=== PATIENT | male | born 1970 | race Caucasian/White ===

== ENCOUNTER 2024-05-01 11:17 | Observation (INO) ==
--- NOTE | 2024-04-08 09:16 | PAT Medication Instructions ---
Medication Instructions Date of Service April 08, 2024 Home Medications acetaminophen 500 mg tablet 1,000 mg PO BID aspirin 81 mg capsule 81 mg PO QAM cetirizine 10 mg tablet (Zyrtec) 10 mg PO QAM cholecalciferol (vitamin D3) 10 mcg (400 unit) tablet (Vitamin D3) 10 mcg PO QAM clonazepam 1 mg tablet (Klonopin) 1 mg PO QAM lisinopril 20 mg tablet 20 mg PO QAM magnesium 250 mg tablet 250 mg PO QAM naproxen 500 mg tablet 500 mg PO BID rosuvastatin 10 mg tablet 10 mg PO HS venlafaxine 150 mg capsule,extended release 24 hr (Effexor XR) 150 mg PO QAM ASK your surgeon for instructions naproxen 500 mg tablet 500 mg PO BID ASK your prescriber and surgeon aspirin 81 mg capsule 81 mg PO QAM DO NOT take the morning of surgery cetirizine 10 mg tablet (Zyrtec) 10 mg PO QAM cholecalciferol (vitamin D3) 10 mcg (400 unit) tablet (Vitamin D3) 10 mcg PO QAM lisinopril 20 mg tablet 20 mg PO QAM magnesium 250 mg tablet 250 mg PO QAM Take morning of surgery With a small sip of water, OTHERWISE NOTHING TO EAT OR DRINK AFTER MIDNIGHT: acetaminophen 500 mg tablet 1,000 mg PO BID clonazepam 1 mg tablet (Klonopin) 1 mg PO QAM venlafaxine 150 mg capsule,extended release 24 hr (Effexor XR) 150 mg PO QAM Take evening before surgery acetaminophen 500 mg tablet 1,000 mg PO BID rosuvastatin 10 mg tablet 10 mg PO HS Other Notes If you have any questions please call us at [phone] or [phone] or [phone] or [phone]
--- NOTE | 2024-04-09 12:06 | Anesthesiology Consultation ---
Date of Service April 09, 2024 Assessment & Plan (1) Encounter for pre-operative examination: Chart Review Chart Review: Acceptable Risk for Surgery (pending surgeon ordered PCP clearance ) and Patient seen in Pre Admission Testing - Awaiting PCP clearance 04/16/24 (MIKAL Alvarez PA-C) Per PAT appt on 04/09/24, no recent illness/disease exposures, illness related symptoms, or recent illness/disease positive tests. Will leave to surgeon's discretion if preop Covid testing needed Teaching & Discussion Pre-Anesthesia Teaching/Discussion Notes: Instructed NPO after midnight before surgery,except medications with 15 cc of water. Medication instructions provided according to the PAT guidelines. History Surgery Operation Date: 05/01/24 07:45 Proposed Procedures p L3-L4 Decompression with Extension Fusion to L3, Spinal Cord Monitoring - Moisés Bloom DO Height/Weight Height: 6 ft Weight: 108.5 kg Allergies Allergy/AdvReac Type Severity Reaction Status Date / Time No Known Allergies Allergy Verified 04/07/24 16:02 Medications Home Medications Medication Instructions Recorded Confirmed Last Taken acetaminophen 500 mg tablet 1,000 mg PO BID 04/07/24 04/07/24 Unknown aspirin 81 mg capsule 81 mg PO QAM 04/07/24 04/07/24 Unknown cetirizine 10 mg tablet (Zyrtec) 10 mg PO QAM 04/07/24 04/07/24 Unknown cholecalciferol (vitamin D3) 10 10 mcg PO QAM 04/07/24 04/07/24 Unknown mcg (400 unit) tablet (Vitamin D3) clonazepam 1 mg tablet (Klonopin) 1 mg PO QAM 04/07/24 04/07/24 Unknown lisinopril 20 mg tablet 20 mg PO QAM 04/07/24 04/07/24 Unknown magnesium 250 mg tablet 250 mg PO QAM 04/07/24 04/07/24 Unknown naproxen 500 mg tablet 500 mg PO BID 04/07/24 04/07/24 Unknown rosuvastatin 10 mg tablet 10 mg PO HS 04/07/24 04/07/24 Unknown venlafaxine 150 mg 150 mg PO QAM 04/07/24 04/07/24 Unknown capsule,extended release 24 hr (Effexor XR) Past Medical History Medical History Anxiety with depression Chronic back pain Hyperlipidemia Hypertension Scoliosis Venous insufficiency of both lower extremities edema stable and at baseline for patient Exercise / Class Metabolic Activity II 4-5 Yardwork/Stairs/Walk up hill (one flight of stairs - no chest pain or SOB ) Past Family History Family History Other No family history of adverse response to anesthesia Past Surgical History Surgical History History of lumbar spinal fusion 07/2014 @ [facility] History of tonsillectomy History of tooth extraction Past Anesthesia History No Hx of Anesthesia Complications and No Family Hx of Anesthesia Complications History of PONV No Hx of PONV and No Hx of Motion Sickness Social History Smoking Status: Former smoker Do You Dip or Chew Tobacco: No Smoking End Date: quit 2020 Hx Alcohol Use: Yes alcohol intake frequency: holidays/special occasions only Hx Substance Use: No substance use type: does not use Review of Systems - Hx of snoring- rare episodes of apnea- no hx of sleep study Patient denies chest pain, shortness of breath, dyspnea on exertion, reflux, cough, wheezing, palpitations. No hx of seizures, stroke, AL. No hx of blood clots or blood transfusions Physical Exam Vital Signs VITALS BP 110/76 P 59 TEMP 97.9 SP02 94% RESP 16 Constitutional no acute distress ENMT Mouth: no TMJ clicking Thyromental Distance: > or= 3.5 Finger Breadths (3.5) Mallampati Class: II Missing molars Neck neck extension not limited Respiratory normal respiratory effort; no respiratory distress Auscultation: lungs clear to auscultation bilaterally; no wheezes Cardiovascular Rate/Rhythm: regular rate and regular rhythm Heart Sounds: no murmur Vessels: no carotid bruit Musculoskeletal Spine: no pain with cervical ROM Extremities: extremities normal to inspection Psychiatric Orientation: alert Lab Results Anesthesia Preop Results Results Anesthesia Widget: WBC 5.43 K/ul (4.8-10.8) 04/09/24 Hgb 14.6 g/dl (14.0-18.0) 04/09/24 Hct 42.4 % (42.0-52.0) 04/09/24 Plt 197 K/uL (130-400) 04/09/24 Na 140 mmol/L (136-145) 04/09/24 K 4.5 mmol/L (3.5-5.1) 04/09/24 Cl 103 mmol/L (98-107) 04/09/24 CO2 31 mmol/L (21-32) 04/09/24 BUN 21 mg/dl (6-23) 04/09/24 Creat 1.01 mg/dl (0.6-1.4) 04/09/24 Glucose Level 93 mg/dl (70-99(Fasting)) 04/09/24 PT 11.8 Seconds (9.0-12.0) 04/09/24 PTT 33 Seconds (21-31) H 04/09/24 INR 1.1 (0.9-1.1) 04/09/24 Urine Color Yellow 04/09/24 Urine Appearance Clear (Clear) 04/09/24 Urine pH 8.5 (4.5-7.5) H 04/09/24 Urine Specific [place] 1.017 (1.000-1.030) 04/09/24 Urine Protein Negative (Negative) 04/09/24 Urine Glucose (UA) Negative (Negative) 04/09/24 Urine Ketones Negative (Negative) 04/09/24 Urine Blood Negative (Negative) 04/09/24 Urine Nitrite Negative (Negative) 04/09/24 Urine Bilirubin Negative (Negative) 04/09/24 Urine Urobilinogen Negative (Negative) 04/09/24 Urine Leukocyte Esterase Negative (Negative) 04/09/24 Blood Type A Positive 04/09/24 Antibody Screen NEGATIVE 04/09/24 Testing Electrocardiogram Date: 04/09/24 Findings: + SB @ (58bpm) Left anterior fascicular block Chest X-Ray Date: 04/09/24 Findings: + NAD
[2024-05-01] MEDS ORDERED: PROPOFOL IV EMULSION 10 MG/ML 20 ML VIAL IV ONE ×2 (11:44→11:47)
[2024-05-01] MEDS ORDERED: LIDOCAINE 2% 2 ML VIAL/AMP(20MG/ML) INFIL ONE ×3 (11:44→11:47)
[2024-05-01] MEDS ORDERED: ROCURONIUM BROMIDE 10 MG/ML 5 ML VIAL IV ONE ×2 (11:44→11:47)
[2024-05-01] MEDS ORDERED: LABETALOL HCL IV 5 MG/ML 20ML IV PRN (11:50)
[2024-05-01] MEDS ORDERED: ePHEDrine sulfate 50 MG/ML AMP IV PRN (11:50)
[2024-05-01] MEDS ORDERED: fentaNYL citrate PF 100 MCG/2 ML VIAL IV PRN (11:50)
[2024-05-01] MEDS ORDERED: PROMETHAZINE HCL 6.25 MG in SODIUM CHLORIDE 0.9% 50 ML IV PRN (11:50)
[2024-05-01] MEDS ORDERED: NALOXONE HCL 0.4 MG/1 ML VIAL/CARP IV PRN ×2 (11:50→17:39)
[2024-05-01] MEDS ORDERED: HYDROmorphone INJ 1 MG/ML SYRINGE IV PRN ×2 (11:50→17:39)
[2024-05-01] MEDS ORDERED: ONDANSETRON INJ 2 MG/ML 2 ML VIAL IV PRN ×2 (11:50→17:39)
[2024-05-01] MEDS ORDERED: FLUMAZENIL 0.1 MG/1 ML 10 ML VIAL IV PRN (11:50)
[2024-05-01] MEDS ORDERED: ATROPINE SULFATE 0.1 MG/ML 10ML SYR IV PRN (11:50)
[2024-05-01] MEDS: GABAPENTIN 600 MG DOSE PO SCH (12:16)
[2024-05-01] MEDS: CeleBREX 200 MG CAP PO SCH (12:16)
[2024-05-01] MEDS: LR 60ML/HR IV SCH (12:16)
[2024-05-01] MEDS: ACETAMINOPHEN 500 MG TAB PO SCH (12:16)
[2024-05-01] MEDS: LR 15ML/HR IV SCH (12:17)
--- NOTE | 2024-05-01 13:18 | History & Physical Bridge Note ---
Date of Service May 01, 2024 History & Physical Bridge Note I have examined the patient, reviewed the History & Physical and in the interval since the performance of the History & Physical I have noted the following changes of clinical significance: no changes noted
--- NOTE | 2024-05-01 13:20 | History & Physical Report ---
Date of Service May 01, 2024 Assessment & Plan (1) Spondylolisthesis, lumbar region: Plan: L3-L4 decompression with extension of fusion to L3 History of Present Illness Primary Care Provider: Eufemia Wise PA-C Back and leg pain Allergies Allergy/AdvReac Type Severity Reaction Status Date / Time No Known Allergies Allergy Verified 05/01/24 11:56 Home Medications Medication Instructions Recorded Confirmed Type acetaminophen 500 mg tablet 1,000 mg PO BID 04/07/24 05/01/24 History aspirin 81 mg capsule 81 mg PO QAM 04/07/24 05/01/24 History cetirizine 10 mg tablet (Zyrtec) 10 mg PO QAM 04/07/24 05/01/24 History cholecalciferol (vitamin D3) 10 10 mcg PO QAM 04/07/24 05/01/24 History mcg (400 unit) tablet (Vitamin D3) clonazepam 1 mg tablet (Klonopin) 1 mg PO QAM 04/07/24 05/01/24 History lisinopril 20 mg tablet 20 mg PO QAM 04/07/24 05/01/24 History magnesium 250 mg tablet 250 mg PO QAM 04/07/24 05/01/24 History naproxen 500 mg tablet 500 mg PO BID 04/07/24 05/01/24 History rosuvastatin 10 mg tablet 10 mg PO HS 04/07/24 05/01/24 History venlafaxine 150 mg 150 mg PO QAM 04/07/24 05/01/24 History capsule,extended release 24 hr (Effexor XR) Past Med/Surg History Problem List (Updated 05/01/24 @ 13:19 by Moisés Bloom DO) Spondylolisthesis, lumbar region Encounter for pre-operative examination Lumbar stenosis with neurogenic claudication (Acute) Medical History Anxiety with depression Chronic back pain Hyperlipidemia Hypertension Scoliosis Venous insufficiency of both lower extremities edema stable and at baseline for patient Surgical History History of lumbar spinal fusion 07/2014 @ [facility] History of tonsillectomy History of tooth extraction Family History Other No family history of adverse response to anesthesia Social History Smoking Status: Former smoker Tobacco Type: Cigarettes Smoking End Date: quit 2020; Second Hand Exposure: No; Do You Dip or Chew Tobacco: No; Tobacco Cessation Education Requested by Patient: No Hx Alcohol Use: Yes Hx Substance Use: No Preferred Language: Taiwanese Communication Ability: Effective Woods Warden Required: No Beliefs That Will Affect Care: None Current Living Situation: Spouse Other Information That Helps Us Care for You: No Feels Safe at Home: Yes Safety Concerns: Feels Safe At This Time Assistive Devices: Glasses Physical Exam Physical Exam: Patient is alert and oriented Heart regular rhythm Lungs clear Results & Data Results & Data Vital Signs (Past 12 Hours) Vital Signs Temp Pulse Resp BP Pulse Ox O2 Del Method 05/01/24 11:49 36.9 C 61 20 115/84 96 Room Air
[2024-05-01] MEDS ORDERED: MIDAZOLAM HCL 1 MG/ML 2ML VIAL ONE (13:30)
[2024-05-01] MEDS ORDERED: fentaNYL citrate PF 100 MCG/2 ML VIAL ONE ×4 (13:30→16:10)
[2024-05-01] MEDS ORDERED: SUCCINYLCHOLINE CHLORIDE 20 MG/ML 10 ML VIAL IV ONE (13:31)
[2024-05-01] MEDS: ceFAZolin 2000MG 2,000 MG/15 ML SYR IV SCH ×2 (13:55→22:22)
[2024-05-01] MEDS: ceFAZolin 330 MG/ML 1 GM VIAL ONE (14:30)
[2024-05-01] MEDS: BUPIVACAINE/EPINEPHRINE 0.25% 1:200,000 30 ML VIAL ONE (14:52)
[2024-05-01] MEDS: FLOSEAL HEMOSTATIC MATRIX 10ML TOP ONE (15:48)
[2024-05-01] MEDS ORDERED: SUGAMMADEX SODIUM 200 MG/2 ML VIAL IV ONE (15:51)
--- NOTE | 2024-05-01 16:01 | Operative Report ---
Post Operative Report Pre & Post Diagnosis Operation Date: 05/01/24 12:55 Pre-Op Diagnosis: #1 lumbar spondylosis with radiculopathy #2 lumbar spondylolisthesis with radiculopathy #3 lumbar spinal stenosis Post-Op Diagnosis: Same I identified the patient and participated in the time-out.: Yes Procedure Operation Date: 05/01/24 12:55 Actual Procedures #1 removal of posterior instrumentation L4-S1. #2 exploration of fusion L4-S1. #3 lumbar decompression with bilateral mid facetectomies and foraminotomies L2- L3 L3-L4. #4 posterior spinal fusion L3-L4. #5 placed posterior instrumentation L3-S1. #6 interbody fusion L3-L4. #7 placement Spira 13 x 26 mm at L3-L4. #8 placement locally harvested morselized autograft and posterior gutters. #9 placed of infuse collagen sponge, with Koros in the posterior lateral gutters and os design and interbody space. #10 application of versa wrap over the exposed dura. Surgeon Moisés Bloom, DO Railroad Construction Director Navin Dai Estimated Blood Loss 150 Findings Consistent with Post-Op Diagnosis Specimens None Indications This is a 53-year-old male presents with the above-mentioned diagnosis after failing course of nonoperative care is here for surgical invention. Description of Procedure Patient was met with identified informed consent obtained. Patient was then taken to the operative suite underwent intubation placed in a prone position on the Eren table atop the Star frame. All bony promises well-padded eyes inspected to ensure no external precipice upon the. This point the lumbar spine was prepped and draped in the normal sterile fashion. Sharp dissection with the assistance of a regards from down to and exposing the lamina transverse processes of L3 and instrumentation at L4-L5 and S1 levels bilaterally. I then proceeded move the hardware bilaterally explored the fusion mass noting it to be mature and intact. And then performed a complete laminectomy of L3 with bilateral medial facetectomies and foraminotomies addressing severe spinal stenosis followed by partial laminectomy of L2 with bilateral medial facetectomies to address all subarticular stenosis. Pedicle screws then placed in L3-L4 S1 levels bilaterally with assistance of fluoroscopy in the process denisha placed. By way of transforaminal approach on the left I discectomy of L3-L4 was performed endplates curetted to subcortical main bone and a 13 x 26 mm Spira cage filled with os design bone graft tapped in position. Rods were then locked in final position bilaterally. The transverse processes of L3-L4 burred to subcortical the bone. Infuse collagen sponge, with Koros and local autograft placed in posterior gutters. 15 round DEANNA drain inserted. The incision was then closed with 1 Vicryl the fascia 2-0 Vicryl subcutaneously and 4 Monocryl for final skin closure. Steri-Strips and sterile dressing placed. Patient waken taken PACU stable condition. Please note spinal cord manage left at the procedure no changes noted. Navin Luis was present at the entire surgery involved the patient positioning complex portion of the surgery and final skin closure. I attest to the content of the Intraoperative Record and any orders documented therein. Any exceptions are noted below.
--- NOTE | 2024-05-01 16:09 | Fluoroscopy Report ---
FL lumbar spine 2-3V CLINICAL HISTORY: L3L4 DECOMPRESSION COMPARISON STUDY: Fluoroscopic images 07/21/2014 FLUOROSCOPY TIME: 11.7 seconds FLUOROSCOPY IMAGES: 2 EXPOSURE DOSE: 11.41 mGy FINDINGS: Partially imaged lumbar posterior interbody denisha and screw fusion hardware with discectomy, exact numbering is not definitive based on magnification. The visualized hardware appears intact. No unexpected opaque foreign bodies. Note that the images were obtained following completion of the surg brian. IMPRESSION: Fluoroscopic assistance as above. ACT 112: Negative or not required by law. Electronically signed by: James Garza M.D. 05/01/2024 4:08 PM
--- NOTE | 2024-05-01 17:30 | Anesthesiology Progress Note ---
Date of Service May 01, 2024 Anesthesia Post Procedure Vital Signs Vital Signs: Temp Pulse Pulse Resp BP BP Pulse Ox 05/01/24 17:15 85 13 141/79 H 95 05/01/24 17:05 36.5 C 85 12 125/73 96 05/01/24 16:55 89 13 144/80 H 94 05/01/24 16:45 97 H 16 105/70 95 05/01/24 16:35 85 16 136/67 99 05/01/24 16:27 36.2 C L 78 15 133/63 98 05/01/24 11:49 36.9 C 61 20 115/84 96 O2 Del Method O2 Flow Rate 05/01/24 17:15 Room Air 05/01/24 17:05 Room Air 05/01/24 16:55 Room Air 05/01/24 16:45 Room Air 05/01/24 16:35 Oxymask 8 05/01/24 16:27 Oxymask 8 05/01/24 11:49 Room Air Pain Intensity Bilateral Back: Pain Intensity: 8 Transfer of Care Handoff Completed per policy Notes Mental Status: alert / awake / arousable Patient Amnestic to Procedure: Yes Nausea / Vomiting: adequately controlled Pain: adequately controlled Airway Patency, RR, SpO2: stable & adequate BP & HR: stable & adequate Hydration State: stable & adequate Anesthetic Complications: no major complications apparent
[2024-05-01] MEDS ORDERED: SOD PHOSPHATE/SOD BIPHOSPHATE ENEMA 132 ML BTL PR PRN (17:39)
[2024-05-01] MEDS ORDERED: FAMOTIDINE 20 MG TAB PO PRN (17:39)
[2024-05-01] MEDS ORDERED: ACETAMINOPHEN 1,000 MG/100 ML VIAL IV PRN (17:39)
[2024-05-01] MEDS ORDERED: diphenhydrAMINE Capsule 25 MG CAP PO PRN (17:39)
[2024-05-01] MEDS ORDERED: HYDROmorphone INJ 0.5 MG/0.5 ML SYR IV PRN (17:39)
[2024-05-01] MEDS ORDERED: DO NOT ADMINISTER FLU VACCINE PRN (17:39)
[2024-05-01] MEDS ORDERED: ALUMINUM/MAGNESIUM SUSP 30 ML UDC PO PRN (17:39)
[2024-05-01] MEDS ORDERED: METOCLOPRAMIDE HCL INJ 5 MG/ML 2 ML VIAL IV PRN (17:39)
[2024-05-01] MEDS ORDERED: MAGNESIUM HYDROXIDE SUSP 30 ML UDC PO PRN (17:39)
[2024-05-01] MEDS ORDERED: traMADol HCL 50 MG TABLET PO PRN (17:39)
[2024-05-01] MEDS ORDERED: bisacodyL 10 MG SUPP PR PRN (17:39)
[2024-05-01] MEDS ORDERED: LORazepam 2 MG/1 ML VIAL IV PRN (17:39)
[2024-05-01] MEDS ORDERED: DO NOT ADMINISTER PNEUMOCOCCAL VACCINE PRN (17:39)
[2024-05-01] MEDS ORDERED: ONDANSETRON 4 MG OD TAB PO PRN (17:39)
[2024-05-01] MEDS ORDERED: PROMETHAZINE 12.5 MG/50.5 ML BAG IV PRN (17:39)
[2024-05-01] MEDS ORDERED: LORazepam 0.5 MG TAB PO PRN (17:39)
[2024-05-01] MEDS ORDERED: hydrOXYzine HCl 25 MG TAB PO PRN (17:39)
[2024-05-01] MEDS: FAMOTIDINE/PF 20 MG/2 ML VIAL IV ONE (19:06)
[2024-05-01] MEDS: ROSUVASTATIN CALCIUM 10 MG TAB PO SCH (20:44)
[2024-05-01] MEDS: DOCUSATE SODIUM/SENNA 50/8.6MG TAB PO SCH (20:44)
--- NOTE | 2024-05-01 23:57 | Consultation ---
Date of Consultation May 01, 2024 Assessment & Plan (1) Post-operative state: 53-year-old male with past med history significant for hypertension, hyperlipidemia, BPH, depression and anxiety is status post back surgery. Post surgery doing fine. Denies any pain. Denies any chest pain or shortness of breath. No feeling of hot or cold. No nausea. Vision is okay. Resting comfortably and hemodynamically stable. Status post back surgery Doing fine Further management as per orthopedics Hypertension On lisinopril required 500cc fluid bolus for soft BP last night. Will hold lisinopril and monitor Hyperlipidemia On statin Depression and anxiety On Effexor and Klonopin DVT prophylaxis disposition Per orthopedics History of Present Illness Reason for Consultation: Status post back surgery Attending Physician: Moisés Bloom DO History of Present Illness 53-year-old male with past med history significant for hypertension, hyperlipidemia, BPH, depression and anxiety is status post back surgery. Post surgery doing fine. Denies any pain. Denies any chest pain or shortness of breath. No feeling of hot or cold. No nausea. Vision is okay. Resting comfortably and hemodynamically stable. Past medical history. As mentioned above Past surgical history. Hernia repair tonsillectomy. Vein stripping. Back surgery. Social history. Denies smoking. Alcohol occasional. No drug use. Family history. Father had prostate cancer. Aunt had diabetes. Paternal grandmother had diabetes. Allergies Allergy/AdvReac Type Severity Reaction Status Date / Time No Known Allergies Allergy Verified 05/01/24 11:56 Home Medications Medication Instructions Recorded Confirmed Type acetaminophen 500 mg tablet 1,000 mg PO BID 04/07/24 05/01/24 History aspirin 81 mg capsule 81 mg PO QAM 04/07/24 05/01/24 History cetirizine 10 mg tablet (Zyrtec) 10 mg PO QAM 04/07/24 05/01/24 History cholecalciferol (vitamin D3) 10 10 mcg PO QAM 04/07/24 05/01/24 History mcg (400 unit) tablet (Vitamin D3) clonazepam 1 mg tablet (Klonopin) 1 mg PO QAM 04/07/24 05/01/24 History lisinopril 20 mg tablet 20 mg PO QAM 04/07/24 05/01/24 History magnesium 250 mg tablet 250 mg PO QAM 04/07/24 05/01/24 History naproxen 500 mg tablet 500 mg PO BID 04/07/24 05/01/24 History rosuvastatin 10 mg tablet 10 mg PO HS 04/07/24 05/01/24 History venlafaxine 150 mg 150 mg PO QAM 04/07/24 05/01/24 History capsule,extended release 24 hr (Effexor XR) Patient History Medical History Anxiety with depression Chronic back pain Hyperlipidemia Hypertension Scoliosis Venous insufficiency of both lower extremities edema stable and at baseline for patient Surgical History History of lumbar spinal fusion 07/2014 @ [facility] History of tonsillectomy History of tooth extraction Family History Other No family history of adverse response to anesthesia Social History Smoking Status: Former smoker Tobacco Type: Cigarettes Smoking End Date: quit 2020; Second Hand Exposure: No; Do You Dip or Chew Tobacco: No; Tobacco Cessation Education Requested by Patient: No Hx Alcohol Use: Yes Hx Substance Use: No Preferred Language: Mongolian Communication Ability: Effective Progress Worker Required: No Beliefs That Will Affect Care: None Current Living Situation: Spouse Other Information That Helps Us Care for You: No Feels Safe at Home: Yes Safety Concerns: Feels Safe At This Time Assistive Devices: Glasses Review of Systems Review of Systems: All systems reviewed & are unremarkable except as noted in HPI & below Physical Exam Physical Exam: General- Not in distress. Head- atraumatic Eyes- EOMI Lungs- clear to auscultation no wheezing or crackles Heart- regular rate and rhythm; no murmur, no gallop. Abdomen- normal bowel sounds, soft, nontender, no distension Extremities- no pretibial edema, moves extremities Musculoskeletal S/p lower back surgery. Dressing and drain intact Neuro- alert, oriented ; EOMI; no facial palsy; no dysarthria; moves extremities Results & Data Vital Signs (Past 12 Hours) Vital Signs Temp Pulse Pulse Resp BP BP Pulse Ox 05/01/24 22:00 36.7 C 76 18 105/62 92 05/01/24 21:49 36.6 C 90 18 106/58 L 93 05/01/24 20:44 36.7 C 92 H 106/65 93 05/01/24 19:47 36.5 C 86 18 115/73 94 05/01/24 19:09 33.6 C L 86 120/74 93 05/01/24 19:03 36.7 C 91 H 123/76 93 05/01/24 18:30 86 17 136/71 92 05/01/24 18:00 90 12 124/74 92 05/01/24 17:30 89 14 137/71 95 05/01/24 17:15 85 13 141/79 H 95 05/01/24 17:05 36.5 C 85 12 125/73 96 05/01/24 16:55 89 13 144/80 H 94 05/01/24 16:45 97 H 16 105/70 95 05/01/24 16:35 85 16 136/67 99 05/01/24 16:27 36.2 C L 78 15 133/63 98 05/01/24 11:49 36.9 C 61 20 115/84 96 O2 Del Method O2 Flow Rate 05/01/24 22:00 Room Air 05/01/24 21:49 Room Air 05/01/24 20:44 Room Air 05/01/24 19:47 Room Air 05/01/24 19:09 Room Air 05/01/24 19:03 Room Air 05/01/24 18:30 Room Air 05/01/24 18:00 Room Air 05/01/24 17:30 Room Air 05/01/24 17:15 Room Air 05/01/24 17:05 Room Air 05/01/24 16:55 Room Air 05/01/24 16:45 Room Air 05/01/24 16:35 Oxymask 8 05/01/24 16:27 Oxymask 8 05/01/24 11:49 Room Air Diagnostic Findings Impressions Lumbar Spine X-Ray 05/01/24 12:55 FL lumbar spine 2-3V CLINICAL HISTORY: L3L4 DECOMPRESSION COMPARISON STUDY: Fluoroscopic images 07/21/2014 FLUOROSCOPY TIME: 11.7 seconds FLUOROSCOPY IMAGES: 2 EXPOSURE DOSE: 11.41 mGy FINDINGS: Partially imaged lumbar posterior interbody denisha and screw fusion hardware with discectomy, exact numbering is not definitive based on magnification. The visualized hardware appears intact. No unexpected opaque foreign bodies. Note that the images were obtained following completion of the surgery. IMPRESSION: Fluoroscopic assistance as above. ACT 112: Negative or not required by law. Electronically signed by: James Garza M.D. 05/01/2024 4:08 PM
[2024-05-02] MEDS: SODIUM CHLORIDE 0.9% 500 ML IV ONE (02:03)
[2024-05-02] MEDS: ACETAMINOPHEN 500 MG TAB PO PRN (06:29)
[2024-05-02] MEDS: POLYETHYLENE (MIRALAX) 17 GM PACK PO SCH (06:30)
[2024-05-02 07:15] LABS: Basophils # (auto) 0.03 K/uL (0.00-0.20); Basophils % (auto) 0.3 %; Hematocrit (blood only) 36.1 % (42.0-52.0); Hemoglobin 12.4 g/dl (14.0-18.0); Immature Granulocytes # (auto) 0.05 K/uL (0.01-0.20); Immature Granulocytes % (auto) 0.5 %; Lymphocytes # (auto) 1.14 K/uL (1.20-3.40); Mean Corpuscular Hemoglobin 30.9 pg (25.0-34.0); Mean Corpuscular Hgb Conc 34.3 g/dL (32.0-36.0); Mean Platelet Volume 10.9 fL (9.4-12.4); Monocytes # (auto) 0.72 K/uL (0.11-0.59); Monocytes % (auto) 6.9 %; Neutrophils # (auto) 8.47 K/uL (1.40-6.50); Neutrophils % (auto) 81.3 %; Platelet Count 174 K/uL (130-400); RDW Coefficient of Variation 12.2 % (11.5-14.5); RDW Standard Deviation 39.9 fL (36.4-46.3); Red Blood Count 4.01 M/uL (4.70-6.10); White Blood Count 10.41 K/ul (4.8-10.8)
[2024-05-02 07:25] LABS: Calcium 8.8 mg/dl (8.6-10.3); Creatinine Clr Calc Pharmacy 104.2 ml/min; Potassium 4.4 mmol/L (3.5-5.1)
--- NOTE | 2024-05-02 08:20 | Hospitalist Progress Note ---
Date of Service May 02, 2024 Assessment & Plan (1) Post-operative state: Plan: 53-year-old male with past med history significant for hypertension, hyperlipidemia, BPH, depression and anxiety is status post back surgery. Post op day# 1 S/P Removal instrumentation L4-S1, Decompression and fusion L3-L4 by Dr Merle ANDERSON # 150 mL Patient doing well and ambulated in hallway Pain management per ortho Wound management per ortho PT/OT as appropriate DVT prophylaxis per ortho Incentive spirometry Hgb: 12.4 from 14.6 pre-op. Monitor DEANNA output (2) Hypertension: Plan: Soft BP overnight that required 500ml IVF bolus BP this am 105/63 Hold home lisinopril and reassess tomorrow (3) Hyperlipidemia: Plan: Continue rosuvastatin (4) Anxiety with depression: Plan: Continue clonazepam, venlafaxine DVT Prophylaxis SCDs Disposition per primary service pending monitoring of DEANNA drain output Currently admitted med surg PCP: Jona Beard. Eufemia Wise PA-C I spent a total of 36 minutes reviewing notes, outpatient records, labs, medication, coordinating, documenting and providing care for this patient excluding time spent in the performance of separately billed services and excluding time spent by another provider/QHP. Thank you for this consultation. We will follow the patient with you during their hospital stay. You can reach a member of the [facility] Hospitalist Team 24/09 via [employer] Admission and Anticipated Discharge Date Admission Date: May 01, 2024 Subjective Patient seen and examined in room 383-2. Patient is sitting up bedside chair. Reports is doing well and pain is controlled. Patient had just ambulated in hallway with PT. Patient reports Marquez catheter removed approximately 2 hours a go. Has not voided yet. Reports had mild headache this morning. Was given Tylenol with resolution of headache. Patient reports typically drinks several cups of coffee daily and did not have any coffee yesterday. He has had 2 cups coffee today. Did not have BM yet today. Denies fever/chills, diaphoresis, N/V/D, dizziness, syncope, vision changes, neck pain, CP, SOB, palpitations, cough, rhinorrhea, abdominal pain, paresthesias, extremity edema, rashes. Review of Systems Review of Systems: All systems reviewed & are unremarkable except as noted in HPI & below Physical Exam Physical Exam: General: no distress, WDWN Head: normocephalic, atraumatic Eyes: conjunctiva non-injected, anicteric ENT: normal inspection external ears, nose, mucous membranes moist Neck: supple, trachea midline Lungs: clear, no respiratory distress, no wheezing/rhonchi/rales CV: RRR, no murmur, no pretibial edema Abd: normal BS, soft, non-tender Back: +dressing in place is dry. +DEANNA drain with serosanguineous drainage Ext: no cyanosis, no erythema, no calf tenderness, active flexion and extension of bilateral knees and ankles while sitting in bedside chair. sensation to light touch intact Neuro: A&O x 3, no focal deficits noted, normal affect Skin: warm, dry Results & Data Results & Data Vital Signs (Past 12 Hours) Vital Signs Temp Pulse Pulse Resp BP BP Pulse Ox 05/02/24 07:07 37 C 69 20 105/63 93 05/02/24 05:44 36.4 C L 67 16 107/66 94 05/02/24 02:35 115/56 L 05/02/24 01:10 37.0 C 79 16 96/52 L 94 05/01/24 22:00 36.7 C 76 18 105/62 92 05/01/24 21:49 36.6 C 90 18 106/58 L 93 05/01/24 20:44 36.7 C 92 H 106/65 93 O2 Del Method 05/02/24 07:07 Room Air 05/02/24 05:44 Room Air 05/02/24 02:35 05/02/24 01:10 Room Air 05/01/24 22:00 Room Air 05/01/24 21:49 Room Air 05/01/24 20:44 Room Air Laboratory Results Short CBC 05/02/24 Range/Units 06:36 WBC 10.41 (4.8-10.8) K/ul Hgb 12.4 L (14.0-18.0) g/dl Hct 36.1 L (42.0-52.0) % Plt Count 174 (130-400) K/uL BMP 05/02/24 06:36 Sodium 140 Potassium 4.4 Chloride 104 Carbon Dioxide 29 BUN 22 Creatinine 1.00 Glucose 101 H Calcium 8.8
--- NOTE | 2024-05-02 08:30 | Orthopedic Progress Note ---
Date of Service May 02, 2024 Assessment & Plan (1) Spondylolisthesis, lumbar region: Plan: At this time initiate physical therapy monitor his DEANNA output hopefully discharge home the next few days. Admission and Anticipated Discharge Date Admission Date: May 01, 2024 Subjective Patient's back pain is controlled leg pain improved Physical Exam Physical Exam: Patient is in bed at this time. Is comfortable. Is constricted testing. Results & Data Vital Signs (Past 12 Hours) Vital Signs Temp Pulse Pulse Resp BP BP Pulse Ox 05/02/24 07:07 37 C 69 20 105/63 93 05/02/24 05:44 36.4 C L 67 16 107/66 94 05/02/24 02:35 115/56 L 05/02/24 01:10 37.0 C 79 16 96/52 L 94 05/01/24 22:00 36.7 C 76 18 105/62 92 05/01/24 21:49 36.6 C 90 18 106/58 L 93 05/01/24 20:44 36.7 C 92 H 106/65 93 O2 Del Method 05/02/24 07:07 Room Air 05/02/24 05:44 Room Air 05/02/24 02:35 05/02/24 01:10 Room Air 05/01/24 22:00 Room Air 05/01/24 21:49 Room Air 05/01/24 20:44 Room Air Queries Orthopedic Spine Obesity: Yes
[2024-05-02] MEDS: dexAMETHasone 6 MG in SYRINGE 0 ML IV SCH (08:54)
[2024-05-02] MEDS: ASPIRIN 81 MG ECTAB PO SCH (08:55)
[2024-05-02] MEDS: VENLAFAXINE HCL XR 150 MG CAPXR PO SCH (08:56)
[2024-05-02] MEDS: MAGNESIUM OXIDE 400 MG TAB PO SCH (08:56)
[2024-05-02] MEDS: CHOLECALCIFEROL 10 MCG (400 UNITS) TAB PO SCH (08:56)
[2024-05-02] MEDS: CETIRIZINE HCL 10 MG TABLET PO SCH (08:56)
[2024-05-02] MEDS ORDERED: lisinopril 20 MG TAB PO SCH (09:00)
[2024-05-02] MEDS: clonazePAM 1 MG TAB PO SCH (09:02)
[2024-05-02] MEDS: oxyCODONE HCL IR 5 MG TAB (IMMEDIATE RELEASE) PO PRN (17:46)
[2024-05-03 06:45] LABS: Hematocrit (blood only) 36.5 % (42.0-52.0); Hemoglobin 12.6 g/dl (14.0-18.0); Mean Corpuscular Hemoglobin 31.4 pg (25.0-34.0); Mean Corpuscular Hgb Conc 34.5 g/dL (32.0-36.0); Mean Platelet Volume 10.9 fL (9.4-12.4); Platelet Count 157 K/uL (130-400); RDW Coefficient of Variation 12.1 % (11.5-14.5); RDW Standard Deviation 40.4 fL (36.4-46.3); Red Blood Count 4.01 M/uL (4.70-6.10); White Blood Count 8.79 K/ul (4.8-10.8)
[2024-05-03 07:04] LABS: BUN Creatinine Ratio 23.5 (10-20); Calcium 9.1 mg/dl (8.6-10.3); Creatinine Clr Calc Pharmacy 122.6 ml/min; Potassium 4.1 mmol/L (3.5-5.1)
--- NOTE | 2024-05-03 08:06 | Hospitalist Progress Note ---
Date of Service May 03, 2024 Assessment & Plan (1) Post-operative state: Plan: 53-year-old male with past med history significant for hypertension, hyperlipidemia, BPH, depression and anxiety is status post back surgery. Post op day# 2 S/P Removal instrumentation L4-S1, Decompression and fusion L3-L4 by Dr Merle ANDERSON # 150 mL Patient doing well and ambulated in hallway Pain management per ortho Wound management per ortho PT/OT as appropriate DVT prophylaxis per ortho Incentive spirometry Hgb: 12.6 today. Stable from 12.4yesterday. Was 14.6 pre-op. Monitor DEANNA output Bowel regimen. Given Dulcolax [place] today in attempts at producing BM Ortho spine anticipates likely discharge home tomorrow pending DEANNA output monitoring (2) Hypertension: Plan: Soft BP overnight that required 500ml IVF bolus BP this am 105/63 Hold home lisinopril and reassess tomorrow (3) Hyperlipidemia: Plan: Continue rosuvastatin (4) Anxiety with depression: Plan: Continue clonazepam, venlafaxine DVT Prophylaxis SCDs Disposition per primary service pending monitoring of DEANNA drain output, possible d/c home tomorrow Currently admitted med surg PCP: Jona Beard. Eufemia Wise PA-C I spent a total of 35 minutes reviewing notes, outpatient records, labs, medication, coordinating, documenting and providing care for this patient excluding time spent in the performance of separately billed services and excluding time spent by another provider/QHP. Thank you for this consultation. We will follow the patient with you during their hospital stay. You can reach a member of the [facility] Team 24/09 via [employer] Admission and Anticipated Discharge Date Admission Date: May 01, 2024 Supervising Physician Co-Signing Physician Notes Discussed with above provider. Vital signs and lab work reviewed; unremarkable. Continue PT OT, pain control as per primary I have reviewed the advanced practitioner's documentation, and I agree with, and take responsibility for the plan of care Subjective Patient seen and examined in room 383-2. Patient standing up at bedside. Has been afebrile and vitals stable. Reports having more back pain today than he did yesterday. He reports constipation. Is unsure when his last BM was. He reports feeling bloated but denies abdominal pain. Is unsure if he is nauseated. Denies vomiting. Denies CP, SOB, palpitations, cough, extremity weakness, extremity edema, rashes, urinary symptoms. Review of Systems Review of Systems: All systems reviewed & are unremarkable except as noted in HPI & below Physical Exam Physical Exam: General: no acute distress, WDWN Head: normocephalic, atraumatic Eyes: conjunctiva non-injected, anicteric ENT: normal inspection external ears, nose, mucous membranes moist Neck: supple, trachea midline Lungs: clear, no respiratory distress, no wheezing/rhonchi/rales CV: RRR, no murmur, no pretibial edema Abd: hypoactive BS, soft, non-tender Back: +dressing in place is dry. +DEANNA drain with serosanguineous drainage Ext: no cyanosis, no erythema, no calf tenderness, active flexion and extension of bilateral knees and ankles while sitting in bedside chair. sensation to light touch intact Neuro: A&O x 3, no focal deficits noted, normal affect Skin: warm, dry Results & Data Results & Data Vital Signs (Past 12 Hours) Vital Signs Temp Pulse Resp BP Pulse Ox O2 Del Method 05/03/24 07:04 37 C 73 18 110/65 94 Room Air 05/02/24 22:35 36.9 C 71 20 124/78 95 Room Air Laboratory Results Short CBC 05/03/24 Range/Units 06:07 WBC 8.79 (4.8-10.8) K/ul Hgb 12.6 L (14.0-18.0) g/dl Hct 36.5 L (42.0-52.0) % Plt Count 157 (130-400) K/uL BMP 05/03/24 06:07 Sodium 137 Potassium 4.1 Chloride 102 Carbon Dioxide 32 BUN 20 Creatinine 0.85 Glucose 109 H Calcium 9.1
--- NOTE | 2024-05-03 09:49 | Orthopedic Progress Note ---
Date of Service May 03, 2024 Assessment & Plan (1) Spondylolisthesis, lumbar region: Plan: At this time we will continue physical therapy monitor his DEANNA operatively discharge home tomorrow. Admission and Anticipated Discharge Date Admission Date: May 01, 2024 Subjective Back pain controlled leg symptoms improved Physical Exam Physical Exam: Patient is in the chair at the bedside. Is comfortable. Distracted testing. Results & Data Vital Signs (Past 12 Hours) Vital Signs Temp Pulse Resp BP Pulse Ox O2 Del Method 05/03/24 07:04 37 C 73 18 110/65 94 Room Air 05/02/24 22:35 36.9 C 71 20 124/78 95 Room Air Queries Orthopedic Spine Obesity: Yes
[2024-05-03] MEDS: bisacodyL 10 MG SUPP PR STA (10:35)
[2024-05-04 07:28] LABS: BUN Creatinine Ratio 22.6 (10-20); Calcium 9.1 mg/dl (8.6-10.3); Creatinine Clr Calc Pharmacy 124.1 ml/min; Potassium 4.2 mmol/L (3.5-5.1)
[2024-05-04 07:40] LABS: Hematocrit (blood only) 35.5 % (42.0-52.0); Mean Corpuscular Hemoglobin 31.1 pg (25.0-34.0); Mean Corpuscular Hgb Conc 33.8 g/dL (32.0-36.0); Platelet Count 167 K/uL (130-400); RDW Coefficient of Variation 11.9 % (11.5-14.5); RDW Standard Deviation 40.4 fL (36.4-46.3); Red Blood Count 3.86 M/uL (4.70-6.10); White Blood Count 9.14 K/ul (4.8-10.8)
[2024-05-04 07:44] VITALS: RESP 17; O2SAT 96
--- NOTE | 2024-05-04 09:43 | Hospitalist Progress Note ---
Date of Service May 04, 2024 Assessment & Plan (1) Post-operative state: Plan: 53-year-old male with past med history significant for hypertension, hyperlipidemia, BPH, depression and anxiety is status post back surgery. Post op day# 3 S/P Removal instrumentation L4-S1, Decompression and fusion L3-L4 by Dr Bloom EBL # 150 mL Patient doing well and ambulated in hallway Pain management per ortho Wound management per ortho PT/OT as appropriate DVT prophylaxis per ortho Incentive spirometry Hgb: 12.6 today. Stable from 12.4yesterday. Was 14.6 pre-op. Monitor DEANNA output Bowel regimen. Given Dulcolax SD today in attempts at producing BM Ortho spine anticipates likely discharge home tomorrow pending DEANNA output monitoring (2) Hypertension: Plan: Soft BP overnight that required 500ml IVF bolus BP this am 105/63 Hold home lisinopril and reassess tomorrow (3) Hyperlipidemia: Plan: Continue rosuvastatin (4) Acute blood loss as cause of postoperative anemia: Plan: Pre op hgb 14.6, hgb 12.0 today DEANNA drain 920ml, EBL 150ml anemia 2/2 expected surgical blood loss and dilutional component (5) Anxiety with depression: Plan: Continue clonazepam, venlafaxine DVT Prophylaxis SCDs Disposition Discharge to home today per primary Currently admitted med surg PCP: Jona Beard. Eufemia Wise PA-C I spent a total of 36 minutes reviewing notes, outpatient records, labs, medic ation, coordinating, documenting and providing care for this patient excluding time spent in the performance of separately billed services and excluding time spent by another provider/QHP. Thank you for this consultation. We will follow the patient with you during their hospital stay. You [facility] via [employer] Pt was seen and examined in collaboration with Dr. Mueller, please see addendum Admission and Anticipated Discharge Date Admission Date: May 01, 2024 Subjective Patient was seen in 383-2 standing up. He was out walking the garcía. He feels incisional soreness. He denies f/c/s, chest pain, sob, n/v/d. He is moving bowels. He is hopeful to discharge today. Review of Systems Review of Systems: All systems reviewed & are unremarkable except as noted in HPI & below Physical Exam Physical Exam: Gen: WD/WN, M, standing up at bedside, NAD, A&O x3 HEENT: Normocephalic, atraumatic, conjunctivae moist, sclerae anicteric, mucous membranes moist. Lung: Clear to Auscultation bilaterally, no wheezes/rales/rhonchi Heart: Regular rate, regular rhythm, no murmurs, rubs, or gallops Abdomen: Soft, NT, ND +BS x 4 Extremities: No edema, lumbar dressing CDI, DEANNA drain with serosang drainage Skin: Warm, no rash, negative turgor. Results & Data Results & Data Vital Signs (Past 12 Hours) Vital Signs Temp Pulse Resp BP Pulse Ox O2 Del Method 05/04/24 07:40 37.0 C 70 17 146/92 H 96 Room Air Laboratory Results Short CBC 05/04/24 Range/Units 06:32 WBC 9.14 (4.8-10.8) K/ul Hgb 12.0 L (14.0-18.0) g/dl Hct 35.5 L (42.0-52.0) % Plt Count 167 (130-400) K/uL BMP 05/04/24 06:32 Sodium 140 Potassium 4.2 Chloride 103 Carbon Dioxide 31 BUN 19 Creatinine 0.84 Glucose 104 H Calcium 9.1 Medications Administered Current Inpatient Medications Acetaminophen (Acetaminophen 500 Mg Tab) 1,000 mg PO Q8H PRN PRN Reason: MILD Pain Scale 1,2,3 & Pre PT Stop: 05/31/24 17:38 Last Admin: 05/04/24 05:42 Dose: 1,000 mg Al Hydrox/Mg Hydrox/Simethicone (Aluminum/Magnesium Susp 30 Ml Udc) 30 ml PO Q6H PRN PRN Reason: Dyspepsia Stop: 05/31/24 17:38 Aspirin (Aspirin 81 Mg Ectab) [facility]: 06/01/24 08:59 Last Admin: 05/04/24 08:24 Dose: 81 mg Bisacodyl (Bisacodyl 10 Mg Supp) 10 mg SD DAILY PRN PRN Reason: Constipation Stop: 05/31/24 17:38 Cetirizine HCl (Cetirizine Hcl 10 Mg Tablet) [facility] Stop: 06/01/24 08:59 Last Admin: 05/04/24 08:24 Dose: 10 mg Clonazepam (Clonazepam 1 Mg Tab) 1 mg PO QAM [facility] Stop: 06/01/24 08:59 Last Admin: 05/04/24 08:25 Dose: 1 mg Diphenhydramine HCl (Diphenhydramine Capsule 25 Mg Cap) 25 mg PO Q6H PRN PRN Reason: Allergic Rhinitis/Insomnia Stop: 05/31/24 17:38 Famotidine (Famotidine 20 Mg Tab) 20 mg PO Q12H PRN PRN Reason: Dyspepsia Stop: 05/31/24 17:38 Hydromorphone HCl (Hydromorphone Inj 0.5 Mg/0.5 Ml Syr) 0.5 mg IV Q3H PRN PRN Reason: MODERATE Pain (Scale 4,5,6) & Pre PT Stop: 05/15/24 17:38 Hydromorphone HCl (Hydromorphone Inj 1 Mg/Ml Syringe) 1 mg IV Q3H PRN PRN Reason: SEVERE Pain (Scale 7,8,9,10) Stop: 05/15/24 17:38 Hydroxyzine HCl (Hydroxyzine Hcl 25 Mg Tab) 25 mg PO Q8H PRN PRN Reason: Anxiety Stop: 05/31/24 17:38 Promethazine HCl (Phenergan) 12.5 mg in 50.5 mls @ 202 mls/hr IV Q6H PRN PRN Reason: Nausea And Vomiting Stop: 05/31/24 17:38 Influenza Virus Vaccine Quadrival (Do Not Administer Flu Vaccine) 1 each N/A PRN PRN PRN Reason: Notification Stop: 05/31/24 17:38 Lisinopril (Lisinopril 20 Mg Tab) 20 mg PO QAM [facility] Stop: 06/01/24 08:59 Lorazepam (Lorazepam 0.5 Mg Tab) 0.5 mg PO Q8H PRN PRN Reason: Sedation/Anxiety Stop: 05/31/24 17:38 Lorazepam (Lorazepam 2 Mg/1 Ml Vial) 0.5 mg IV Q8H PRN PRN Reason: Sedation/Anxiety Stop: 05/31/24 17:38 Magnesium Hydroxide (Magnesium Hydroxide Susp 30 Ml Udc) 30 ml PO Q24H PRN PRN Reason: Constipation Stop: 05/31/24 17:38 Magnesium Oxide (Magnesium Oxide 400 Mg Tab) 400 mg PO QAM [facility] Stop: 06/01/24 08:59 Last Admin: 05/04/24 08:25 Dose: 400 mg Metoclopramide HCl (Metoclopramide Hcl Inj 5 Mg/Ml 2 Ml Vial) 10 mg IV Q6H PRN PRN Reason: Nausea &/or Vomiting Stop: 05/31/24 17:38 Naloxone HCl (Naloxone Hcl 0.4 Mg/1 Ml Vial/Carp) 0.1 mg IV Q5M PRN PRN Reason: Oversedation/Resp depression Stop: 05/31/24 17:38 Ondansetron HCl (Ondansetron Inj 2 Mg/Ml 2 Ml Vial) 4 mg IV Q6H PRN PRN Reason: Nausea &/or Vomiting Stop: 05/31/24 17:38 Ondansetron HCl (Ondansetron 4 Mg Od Tab) 4 mg PO Q6H PRN PRN Reason: Nausea Stop: 05/31/24 17:38 Oxycodone HCl (Oxycodone Hcl Ir 5 Mg Tab (Immediate Release)) 5 - 10 mg PO Q4H PRN PRN Reason: Pain & Pre PT Stop: 05/15/24 17:38 Last Admin: 05/03/24 05:43 Dose: 10 mg Pneumococcal Polyvalent Vaccine (Do Not Administer Pneumococcal Vaccine) 1 each N/A PRN PRN PRN Reason: Notification Stop: 05/31/24 17:38 Polyethylene Glycol (Polyethylene (Miralax) 17 Gm Pack) 17 gm PO Q6 [facility] Stop: 06/01/24 05:59 Last Admin: 05/04/24 05:58 Dose: Not Given Rosuvastatin Calcium (Rosuvastatin Calcium 10 Mg Tab) 10 mg PO [facility] Stop: 05/31/24 20:59 Last Admin: 05/03/24 20:41 Dose: 10 mg Senna/Docusate Sodium (Docusate Sodium/Senna 50/8.6mg Tab) 2 tab PO HS [facility] Stop: 05/31/24 20:59 Last Admin: 05/03/24 20:42 Dose: Not Given Sodium Biphosphate/Sodium Phosphate (Sod Phosphate/Sod Biphosphate Enema 132 Ml Btl) 132 ml SD ONE PRN PRN Reason: Constipation Stop: 05/31/24 17:38 Tramadol HCl (Tramadol Hcl 50 Mg Tablet) 50 - 100 mg PO Q4H PRN PRN Reason: Moderate-Severe pain & Pre PT Stop: 05/31/24 17:38 Venlafaxine HCl (Venlafaxine Hcl Xr 150 Mg Capxr) 150 mg PO [facility] Stop: 06/01/24 08:59 Last Admin: 05/04/24 08:25 Dose: 150 mg Vitamin D (Cholecalciferol 10 Mcg (400 Units) Tab) 10 mcg PO [facility] Stop: 06/01/24 08:59 Last Admin: 05/04/24 08:24 Dose: 10 mcg
--- NOTE | 2024-05-04 10:20 | Discharge Summary ---
Date of Service May 04, 2024 Admission HPI Per Admitting Provider Back and leg pain Principal Diagnosis Lumbar spondylosis with spondylolisthesis and radiculopathy Discharge Data Allergies Allergy/AdvReac Type Severity Reaction Status Date / Time No Known Allergies Allergy Verified 05/01/24 11:56 Consultations 05/01/24 17:39 Consult Hospitalist Routine Procedures Performed Operation Date: 05/01/24 12:55 Actual Procedures p L3-L4 Decompression with Extension Fusion to L3, Interbody Fusion, Spinal Cord Monitoring(Not Applicable) - DO grant Callaway Hardware Removal(Not Applicable) - Moisés Bloom DO Ordered Studies 05/01/24 12:55 FL lumbar spine 2-3V Routine Hospital Course (1) Spondylolisthesis, lumbar region: Patient with lumbar decompression fusion trial as well as taken orthopedic for postoperative. Postop he progressed appropriately. DEANNA drain decreasing. Extra strength testing. With pain well-controlled. Subsidy discharged home. Discharge orders and instructions from the chart for further review. Total Time Total Time Spent Total Time Spent (In Minutes): 20 minutes Discharge Plan Discharge Items Patient Disposition: Home - Self-Care Reason For Visit: Lumbar Disc Disease with Radiculopathy, Other Spon Discharge Diagnosis: Lumbar spondylosis with radiculopathy Activity: As commented below Non-emergency contact: Primary Care Provider Call non-emergency contact if: you have any medication questions Follow-up/Referrals: Eufemia Wise PA-C [Primary Care Provider] - Diet: Regular Addtl Attending Provider Instructions: ACTIVITY RECOMMENDATIONS: SELF CARE INSTRUCTIONS AFTER THORACIC/LUMBAR FUSIONS 1. You may walk to your tolerance. It is good exercise for your legs and back. Expect some back and intermittent leg aches and pains. 2. You may perform "counter-top" level activities (make a sandwich, osmin with a project, etc.). 3. No bending or lifting of more than 10 pounds or back twisting of any nature (roll like a log when turning in bed). 4. You may ride in a car for 20-30 minutes at a time. No driving until after your first visit with your doctor. 5. Frequent changes of position and restricting sitting to 30 minutes at a time will help limit the amount of back spasms and stiffness you may experience. 6. You may discontinue the use of ambulatory aids (cane, crutches, etc.) once your strength and confidence allow. 7. You may linux developer the shower and let water strike your incision when you arrive home at least once daily. Do not take a tub bath, sit in a hot tub or go into a swimming pool until after your first recheck in the office. 8. You may resume previous diet. SPECIAL CARE INSTRUCTIONS: VERY IMPORTANT TO READ AND REVIEW A. Your surgical incision has been closed with a cosmetic suture under the skin that will dissolve in about 6 weeks. In 14 days, you can use a pair of clean scissors and cut the suture that is left outside of the skin at the ends of your incision. 1. The small skin tapes can be removed 7 days after surgery if they have not fallen off by that point. 2. You may keep the wound open to air as much as possible to promote healing after post-op day number 5 unless told otherwise by your doctor. 3. If you think the wound looks like it is becoming infected (redness or worsening drainage) and/or you are experiencing fever, chill or worsening back pain and muscle spasms, contact the office so that we may evaluate you as soon as possible. B. Complications are uncommon, but please contact us if you have any signs or symptoms of: 1. wound infection (fever higher than 102.5 degrees F, redness, separation of wound, drainage, or increasing pain from the incision) 2. blood clots in legs (pain, swelling, redness and warmth in legs) 3. urinary tract infection (fever higher than 102.5 degrees F, burning upon urination or increased frequency of urination) 4. nerve problems (inability to walk on your toes or heels, numbness, loss of bowel or bladder control) 5. any other symptoms that concern you C. Please call the office at if you have any concerns or questions about your operation or recovery. D. No smoking! Smoking drastically decreases the chance of a solid fusion. E. Do not take any anti-inflammatory medications (Indocin, Advil, Motrin, Aspirin, Naprosyn, etc.) as these may inhibit the chance of a solid fusion. Tylenol is okay to take for pain. MANAGING PAIN AFTER SPINAL SURGERY 1. Narcotic medication is intended for short-term use and will be provided for surgical pain. Surgical pain usually lasts for a period of 4-6 weeks. Narcotic medication includes Percocet, Vicodin, Darvocet, Tylenol #3 or Lortab. 2. Longer-term pain is more appropriately treated with non-narcotic medication such as Tylenol ES. 3. Muscle spasm is not appropriately treated with narcotics. Muscle relaxers such as Soma, Flexeril or Skelaxin can be used along with Tylenol ES. 4. Remember that we all live with some "aches and pains". This is not unusual or uncommon after an injury or as we get older. a. Back pain is expected and may include muscle spasms for 4 to 6 weeks after surgery. The pain should gradually improve. If the pain worsens for no apparent reason, please contact the office. b. Intermittent leg pain may also be experienced and should not be concerned about unless it worsens for no apparent reason. If so, please contact the office. 5. We will provide appropriate medication within the normal guidelines of their prescribed use. We will also be very cautious and aware of potential abuse and extended duration of patients' medication needs. a. Pain medications are for your comfort and to assist with sleep and rest so that the tissue can heal. They are not provided in order to return to normal activity and should not be used through the day. To do so or worsening pain at night can result from ongoing tissue damage and development of tolerance to the prescribed medicine. 6. Please allow 2-3 days to process refills. Prescriptions will not be mailed but must be picked up at the office. FOLLOW UP VISIT: Keep your scheduled follow-up appointment. Any questions, please call the office at . Pending Studies at Discharge: No Stand-Alone Forms: My [facility] [employer], Smoking Cessation Medications and DC Order Prescriptions: New tramadol 50 mg tablet 50 mg PO Q6H PRN (Reason: pain, moderate) Qty: 30 0RF oxycodone 5 mg tablet 5 mg PO Q6H PRN (Reason: pain) Qty: 30 0RF Continued cetirizine [Zyrtec] 10 mg Tablet 10 mg PO QAM lisinopril 20 mg Tablet 20 mg PO QAM clonazepam [Klonopin] 1 mg Tablet 1 mg PO QAM venlafaxine [Effexor XR] 150 mg Capsule,Extended Release 24hr 150 mg PO QAM acetaminophen 500 mg Tablet 1,000 mg PO BID magnesium 250 mg Tablet 250 mg PO QAM cholecalciferol (vitamin D3) [Vitamin D3] 10 mcg (400 unit) Tablet 10 mcg PO QAM naproxen 500 mg Tablet 500 mg PO BID rosuvastatin 10 mg Tablet 10 mg PO HS aspirin 81 mg Capsule 81 mg PO QAM Admission Data Admit Date/Time: 05/01/24 16:06 Attending Provider: Moisés Bloom Admit Provider: Moisés Bloom Primary Care Provider: Eufemia Wise Other Providers: Concetta Conrad
[2024-05-04 11:47] VITALS: BP 136/86; PULSE 74; TEMP 99.3
== END 2024-05-04 14:29 | disposition home or self-care (01) | DRG 402 ==
LOC: ASU 11:17 → INTOOBSV 16:06 → PACUINP 16:06 → 3N 18:47